=== PATIENT | female | born 1970 | race Caucasian/White ===

== ENCOUNTER 2025-08-05 19:05 | Emergency (ER) | payer SELFPAY ==
[~2025-08-05] VITALS: Ht 170.2 cm; Wt 71.2 kg
[2025-08-05 19:35] LABS: PLATELET COUNT (AUTO) 390 K/uL (150-450); RED BLOOD CELL COUNT(AUTO) 5.10 MIL/uL (4.0-5.2); RED CELL DISTRIBUTION WIDTH 14.6 % (11.5-15.0); WHITE BLOOD COUNT (AUTO) 9.0 K/uL (4.3-11.0)
[2025-08-05 19:44] LABS: CALCIUM, SERUM 11.4 mg/dL (8.5-10.1); CREATININE 0.8 mg/dL (0.6-1.3); SODIUM SERUM 141 mmol/L (136-145); UREA NITROGEN, BLOOD 10 mg/dL (7-18)
[2025-08-05 20:00] LABS: ASPARTATE AMINOTRANSFERASE 19 U/L (15-37); NT-PRO BNP 75 pg/mL (0-125); TOTAL PROTEIN, SERUM 9.2 g/dL (6.4-8.2)
[2025-08-05 20:14] VITALS: BP 139/110; TEMP 98; O2SAT 100
== END 2025-08-05 20:16 | disposition left against medical advice (07) ==
LOC: ER 19:09
DX: R55 Syncope and collapse (principal); R07.9 Chest pain, unspecified; Z60.2 Problems related to living alone
CPT/HCPCS: 36415; 71045-TC; 80048-TC; 80076-TC; 83880; 84484-TC; 85025-TC